=== PATIENT | male | born 1970 | race Caucasian/White ===

== ENCOUNTER 2019-06-20 23:07 | Emergency (ER) | payer SELFPAY ==
[~2019-06-20] VITALS: Ht 167.6 cm; Wt 59.1 kg
[2019-06-20 23:27] VITALS: BP 120/69; Ht 167.6 cm; Wt 59.1 kg
[2019-06-20] MEDS ORDERED: ALBUTEROL SULF8.5 GM INH (23:55)
== END 2019-06-20 23:55 | disposition home or self-care (01) ==
LOC: D.ER 23:07
DX: J44.9 Chronic obstructive pulmonary disease, unspecified (principal); Z72.0 Tobacco use; B20 Human immunodeficiency virus [HIV] disease